=== PATIENT | female | born 1980 | race Caucasian/White ===

== ENCOUNTER 2020-10-10 14:31 | Outpatient (CLI) | payer BC, SELFPAY ==
--- NOTE | 2020-11-13 10:53 | WPDHOLTEREM ---
Holter/Event Monitor Holter/Event Monitor Date of procedure: 11/13/20 Holter/Event Procedure: Event Monitor Indications: Palpitations Conclusion: 1. 17 days event monitor between 10/10/20-11/08/20. There are 20 available transmissions for analysis. 2. Underlying rhythm is sinus rhythm. HR range 57-144 bpm; average HR 89 bpm. 3. There are occasional premature supraventricular complexes with total burden of 1%. No supraventricular tachycardia. 4. There are occasional premature ventricular complexes with total burden of 1%. No ventricular tachycardia. 5. No significant pauses greater than 2 seconds. 6. Patient reports 1 episode of symptom of symptom other than listed which demonstrate sinus tachycardia at 117 bpm.
== END 2020-10-10 14:32 | disposition home or self-care (01) ==
LOC: CHSCARD 14:33
PROVIDERS: PCP Internal Medicine; Visit Provider Internal Medicine
DX: R00.2 Palpitations (principal)
CPT/HCPCS: 93270; 93272

== ENCOUNTER 2021-03-18 10:46 | Outpatient (CLI) | payer BC, SELFPAY ==
--- NOTE | ~2021-03-18 | US_ITS ---
EXAMINATION: US pelvic complete w TV DATE: 03/18/2021 11:50 INDICATION: Excessive and frequent menstruation Comparison:Ultrasound dated 08/12/2012 TECHNIQUE: Multiple transabdominal and endovaginal sonographic images of the pelvis performed. FINDINGS: The uterus measures 11.8 x 7.5 x 7.1 cm. The endometrial complex measures 1.4 cm. The right ovary measures 4.2 x 3.7 x 2.9 cm and the left ovary measures 2.4 x 1.4 x 1.7 cm. There ar e small follicles in each ovary. Normal doppler signal in both ovaries. There is no free fluid in the pelvis. There are no abnormal masses seen on either side. IMPRESSION: 1. Mild endometrial thickening measuring 1.4 cm. 2: Enlarged uterus. Reviewed, dictated and finalized at location A. WRAPPER OPERATOR
== END 2021-03-18 10:47 | disposition home or self-care (01) ==
PROVIDERS: PCP Internal Medicine; Visit Provider Obstetrics & Gynecology
DX: N92.0 Excessive and frequent menstruation with regular cycle (principal); N85.2 Hypertrophy of uterus
CPT/HCPCS: 76830; 76856

== ENCOUNTER 2021-05-12 16:24 | Outpatient (CLI) | payer BC, SELFPAY ==
[2021-05-12 18:53] LABS: Influenza Control Valid (Valid)
[2021-05-12 19:18] LABS: SARS-CoV-2 Ag Positive (Negative)
== END 2021-05-12 16:25 | disposition home or self-care (01) ==
LOC: CHSLAB 16:47
PROVIDERS: PCP Internal Medicine; Visit Provider Internal Medicine
DX: U07.1 COVID-19 (principal); J06.9 Acute upper respiratory infection, unspecified
CPT/HCPCS: 87081; 87426; 87651; 87804; 87880; C9803

== ENCOUNTER 2021-05-24 10:40 | Outpatient (CLI) | payer BC, SELFPAY | END 2021-05-24 10:41 | disposition home or self-care (01) | LOC: CHSIMG 10:42 | PROVIDERS: PCP Internal Medicine; Visit Provider Nurse Practitioner Family | DX: Z53.9 Procedure and treatment not carried out, unspecified reason (principal) | CPT/HCPCS: 99199 ==

== ENCOUNTER 2021-10-13 10:07 | Outpatient (CLI) | payer BC, SELFPAY ==
[2021-10-13 10:29] LABS: Anion Gap 9 mmol/L (8-16); Blood Urea Nitrogen 15 mg/dL (7-18); Calcium 8.6 mg/dL (8.5-10.1); Carbon Dioxide 26 mmol/L (21-32); Chloride 106 mmol/L (98-108); Estimated Glomerular Filt Rate > 60; Glucose 146 mg/dL (70-99); Osmolality Calculated 295 mOsm/kg (285-295); Sodium 141 mmol/L (136-145)
== END 2021-10-13 10:08 | disposition home or self-care (01) ==
LOC: CHSLAB 10:09
PROVIDERS: PCP Internal Medicine; Visit Provider Obstetrics & Gynecology
DX: I10 Essential (primary) hypertension (principal)
CPT/HCPCS: 36415; 80048

== ENCOUNTER 2021-10-15 00:19 | Day surgery (SDC) | payer BC, SELFPAY ==
[2021-10-08 13:12] VITALS: BMI 41.7
--- NOTE | 2021-10-08 15:20 | PC.NURSE ---
PLEASE GIVE THIS FORM TO PATIENT WHEN PATIENT PRESENTS FOR OUTPATIENT TESTING Report to the Outpatient Waiting Room, entrance under the green pavilion located off [facility], at time _0600 on date _10/15/21 . OR Time: _0730 . IF YOUR SURGERY TIME IS CHANGED, WE WILL CALL YOU ON . 10/14/21 AFTERNOON - You and your visitor will be asked a series of questions to screen for COVID 19 for your protection. - Only one visitor is allowed at this time. - The patient visitor is requested to leave or wait in car when not with patient. - A mask is required within the hospital. Patients may have clear liquids (water, carbonated beverages, clear teas, apple juice) until 3 hours prior to surgery with a maximum of 20 ounces. - No food from midnight until time of surgery - Take the following medications with a SIP of water the morning of surgery: ___N/A Medications to discontinue per physician HOLD YOUR MULTIVITAMINS/SUPPLEMENTS BEGINNING 10/12/21 Date to take last dose Please no make-up, nail urdu, hairspray, perfume, deodorant, or body powder the day of surgery. No jewelry (including any body piercings) or valuables the day of surgery, leave them at home. Please take a shower or bath the night before, or the morning of, surgery with an antibacterial soap. Wear comfortable, loose fitting clothing. - Jewelry must be removed prior to entering the operating room. Rings and piercings that are not removed may be cut off. - The hospital will not accept responsibility for valuables. - Please leave all valuables, including medications, at home the day of surgery. If you are going home after surgery, a licensed hazardous materials driver must drive you home. - NO public transportation without another adult. - We recommend that an adult stay with you for 24 hours following discharge. - We also recommend that you do not drive, make important decision, drink alcoholic beverages, or take any drugs that were not prescribed by your health care provider for at least 24 hours after your discharge time. Follow any additional instructions given to you from your surgeon. If you or anyone in your household have experienced Covid symptoms in the past week, please notify your surgeon or the nurse liaison at the phone number below for possible testing. Telephone instructions given to JETT and asked if any additional questions and then verbalized understanding. Patient advised to call surgeon office or pre surgery nurse liaison [phone] if any additional questions.
--- NOTE | 2021-10-14 13:49 | P.PNAN_ITS ---
Anes - Initial Pre Proc Eval Procedure: Operation Date: 10/15/21 07:30 Proposed Procedures p Hysteroscopy with Endometrial Ablation, Possible Myosure - Jose Tomlinson MD Date/Time: 10/14/21 13:49 Surgeon: Jose Tomlinson MD Pre Op Diagnosis: menorrhagia, endometrial polyp Patient Data Age: 41 Gender: F Height: 1.73 m Weight: 124.5 kg Allergies Allergy/AdvReac Type Severity Reaction Status Date / Time No Known Allergies Allergy Verified 10/15/21 07:05 Home Medications Medication Instructions Recorded Confirmed Type tranexamic acid 650 mg tablet 650 mg PO TID PRN heavy periods 08/04/21 10/08/21 Rx (Lysteda) #30 tabs losartan 50 mg-hydrochlorothiazide 1 tablet PO DAILY 09/24/21 10/15/21 History 12.5 mg tablet cetirizine 10 mg tablet (Zyrtec) 10 mg PO DAILY 10/08/21 10/15/21 History cholecalciferol (vitamin D3) 50 50 mcg PO DAILY 10/08/21 10/15/21 History mcg (2,000 unit) tablet multivit with minerals-iron 18 1 tablet PO POST-TRANSFUSION 10/08/21 10/15/21 History mg-folic ac 400 mcg-vit K 25 mcg tablet (Adults Multivitamin) Patient hx anesthesia problems: none Family hx anesthesia problems: none Results Review: All pre-operative results and documents have been reviewed as part of the pre- operative evaluation. PMFSH Past Medical History Medical History Hyperlipidemia Hypertension Morbid obesity with BMI of 40.0-44.9, adult Surgical History Surgical History Previous section x 2 Family History Family History Grandparent Diabetes mellitus Ovarian cancer Cervical cancer Social History Social History Smoking status: Never smoker Second hand tobacco smoke exposure: No Alcohol intake: current Substance use: never Substance use type: does not use Living arrangements: with family Spiritual care concerns: No Anes - Eval Final PreProcedure Day of Procedure 10/14/21 13:49 Patient weight: morbidly obese Heart: regular rate and rhythm Lungs: clear to auscultation and normal air movement Airway: Mallampati scale class II Neurological: alert and oriented Last oral intake: >/= 8 hours ASA classification: III Emergent: no Anesthetic plan: proceed Anesthesia type and monitoring: general LMA Results Review: All pre-operative results and documents have been reviewed as part of the pre- operative evaluation. Informed Consent: The patient's anesthetic plan and its attendant risks and benefits were discussed with the patient/family/POA. Questions were solicited and answers provided to the satisfaction of the patient/family/POA.
--- NOTE | 2021-10-14 16:21 | PM.IMHP ---
H&P: HPI History of Present Illness Date/Time: 10/14/21 16:21 Chief Complaint: heavy periods Narrative: ?she complains of subjective menorrhagia increasing over 1 year.? She reports she is anemic and is on iron pills 3 times a day. She had an endometrial biopsy which showed possible polyp. She has been offered hysteroscopy and she also desires endometrial ablation. has a vasectomy. Review of Systems Review of Systems: All systems reviewed & are unremarkable except as noted in HPI and below Constitutional: Constitutional: Reports no additional constitutional complaints ENT: Reports system reviewed and no additional complaints, except as documented Cardiovascular: Cardiovascular: Denies chest pain and Denies dyspnea Respiratory: Respiratory: Denies dyspnea Gastrointestinal: Gastrointestinal: Reports no additional gastrointestinal complaints Genitourinary: Genitourinary: Reports amenorrhea Musculoskeletal: Musculoskeletal: Reports no additional musculoskeletal complaints Neurologic: Denies headache(s) Psychiatric: Psychiatric: Reports no additional psychiatric complaints PMFSH Past Medical History Medical History Hyperlipidemia Hypertension Morbid obesity with BMI of 40.0-44.9, adult Surgical History Surgical History Previous section x 2 Family History Family History Grandparent Diabetes mellitus Ovarian cancer Cervical cancer Social History Social History Smoking status: Never smoker Second hand tobacco smoke exposure: No Alcohol intake: current Substance use: never Substance use type: does not use Living arrangements: with family Spiritual care concerns: No Meds Home Medications and Allergies Home Medications Medication Instructions Recorded Confirmed Type tranexamic acid 650 mg tablet 650 mg PO TID PRN heavy periods 08/04/21 10/08/21 Rx (Lysteda) #30 tabs losartan 50 mg-hydrochlorothiazide 1 tablet PO DAILY 09/24/21 10/15/21 History 12.5 mg tablet cetirizine 10 mg tablet (Zyrtec) 10 mg PO DAILY 10/08/21 10/15/21 History cholecalciferol (vitamin D3) 50 50 mcg PO DAILY 10/08/21 10/15/21 History mcg (2,000 unit) tablet multivit with minerals-iron 18 1 tablet PO POST-TRANSFUSION 10/08/21 10/15/21 History mg-folic ac 400 mcg-vit K 25 mcg tablet (Adults Multivitamin) Allergies Allergy/AdvReac Type Severity Reaction Status Date / Time No Known Allergies Allergy Verified 10/15/21 07:05 Exam Const: General: no acute distress Eyes: General: appearance normal, both eyes and all related structures Neck: Neck: normal visual inspection Resp: Effort & Inspection: normal respiratory effort Auscultation: clear to auscultation bilaterally Cardio: Rate: regular rate Rhythm: regular rhythm GI: Inspection: normal to inspection GI Palp: No abdominal tenderness : External Female Exam: normal external appearance Speculum Exam - Vagina: normal appearance of the vagina Speculum Exam - Cervix: normal appearance of the cervix Bimanual exam- vagina & uterus: normal bimanual exam Bimanual Exam- Adnexa, other: normal adnexae Skin: General skin exam: no rashes or lesions noted Neuro: Cognition (Neuro): normal cognition Extrem: General: normal to inspection Psych: Mental Status: mental status grossly normal Assessment and Plan Assessment and plan (1) Menorrhagia: Code(s): N92.0 - Excessive and frequent menstruation with regular cycle Status: Acute Assessment and Plan: Endometrial ablation. (2) Endometrial polyp: Code(s): N84.0 - Polyp of corpus uteri Status: Acute Assessment and Plan: hysteroscopy and possible dilation and currettage and possible myosure removal of
[2021-10-15 06:15] VITALS: BP 148/98; PULSE 100; RESP 20; TEMP 36.4; O2SAT 100
[2021-10-15] MEDS: ACETAMINOPHEN 500 MG TABLET 1000 MG PO (06:55)
[2021-10-15] MEDS: LACTATED RINGERS 1,000 ML 30 ML IV CONT ×2 (07:00→08:50)
--- NOTE | 2021-10-15 07:15 | WPDHPUPDATE1 ---
History and Physical Update Update Date/Time: 10/15/21 07:15 History and Physical has been reviewed, including an updated exam of the patient. There are NO changes in the patient's condition. Risks, benefits, and alternatives have been discussed and questions answered. Patient agrees to proceed with procedure.
[2021-10-15] MEDS: ceFAZolin 2 GM/D5W 50 ML 2 GM/50 ML BAG IVPB (07:29)
[2021-10-15] MEDS: LIDOCAINE HCL 1% LOCAL INJ 20 ML VIAL 10 ML INFILTRATE (07:42)
--- NOTE | 2021-10-15 08:05 | W.PM.PROC2 ---
Procedure Note - Detailed Date of Procedure 10/15/21 Pre-op Diagnosis menorrhagia, endometrial polyp Post-op Diagnosis Same Procedure Performed Diagnostic hysteroscopy with Delores endometrial ablation. Surgeon Jose Tomlinson MD Anesthesia MAC and Local Indications Menorrhagia Findings uterus sound to 11cm cervical length 5.5, normal uterine cavity, good eschar of cavity after ablation, 550 NS insufflated, 400 NS out Description of Procedure After informed consent was obtained patient was taken to the operating room and adequate IV sedation was administered. Attention was turned to the vagina. Speculum was inserted. Single-tooth tenaculum placed on the anterior lip of the cervix. The uterus was sounded to 11 cm. The cervix was dilated to an 8 Covarrubias dilator. The cervical length was 5.5. The hysteroscope was inserted into the cavity. The findings were a normal uterine cavity. The hysteroscope was removed. The Delores ablation instrument was inserted into the cavity. Cavity assessment was performed and confirmed intact. The ablation was enabled. After 120 seconds the Delores stopped. The ablation instrument was removed. The hysteroscope was inserted and there was noted to be good eschar with the cavity. The hysteroscope was removed the single-tooth tenaculum was removed hemostasis was noted at the tenaculum site. Sponge count correct. The patient taken to recovery in stable condition. Estimated Blood Loss 10 Drains No Packing No Pathology None sent Complications No immediate complications Condition Stable Disposition Same day [facility] Billing Surgery - Charge Forward: Surgery Billing
[2021-10-15] MEDS: KETOROLAC 30 MG/ML VIAL (*BKC) IV PUSH (08:13)
[2021-10-15 08:15] VITALS: BP 164/92; PULSE 108; RESP 18; O2SAT 98
[2021-10-15] MEDS: fentaNYL CITRATE INJ (*CRX) 100 MCG/2 ML VIAL 25 MCG IV PUSH ×6 (08:32→09:34)
[2021-10-15 08:45] VITALS: BP 161/98; PULSE 83; RESP 16
[2021-10-15 09:15] VITALS: BP 159/89; PULSE 81; RESP 16
[2021-10-15] MEDS: oxyCODONE HCL (*CRX) 5 MG TAB IR PO (09:34)
[2021-10-15 09:45] VITALS: BP 165/93; PULSE 91; RESP 16
== END 2021-10-15 10:02 | disposition home or self-care (01) ==
PROVIDERS: PCP Internal Medicine; Visit Provider Obstetrics & Gynecology
PROC: 0U5B8ZZ Destruction of Endometrium, Via Natural or Artificial Opening Endoscopic (ICD-10-PCS; CPT 58563; principal; 2021-10-15 07:30)
DX: N92.0 Excessive and frequent menstruation with regular cycle (principal); N84.0 Polyp of corpus uteri; D64.9 Anemia, unspecified; I10 Essential (primary) hypertension; E78.5 Hyperlipidemia, unspecified; E66.01 Morbid (severe) obesity due to excess calories; Z68.39 Body mass index [BMI] 39.0-39.9, adult
CPT/HCPCS: 58563; A9270; J0690; J1885; J2250; J2704; J3010; J7030; J7120

== ENCOUNTER 2022-06-04 10:36 | Outpatient (CLI) | payer BC, SELFPAY ==
--- NOTE | ~2022-06-04 | MM_ITS ---
EXAMINATION: MM screening nancy BI w garret HISTORY: Screening mammogram TECHNIQUE: Craniocaudal and mediolateral oblique 3-D tomosynthesis images were obtained and synthetic 2-D images were generated. CAD analysis was submitted and interpreted. COMPARISON: 01/22/2011 BREAST PARENCHYMAL COMPOSITION: The breasts are heterogeneously dense, which may obscure small masses . FINDINGS: No suspicious mass, calcification, or architectural distortion are identified in either angelica ast to suggest malignancy. There has been no suspicious interval change. IMPRESSION: 1. No mammographic evidence of malignancy. 2. Recommend routine screening mammography in one year. BI-RADS Category 1: Negative Reviewed, dictated and finalized at location A. ICAL MARKETING MANAGER
== END 2022-06-04 10:37 | disposition home or self-care (01) ==
PROVIDERS: PCP Internal Medicine; Visit Provider Obstetrics & Gynecology
DX: Z12.31 Encounter for screening mammogram for malignant neoplasm of breast (principal)
CPT/HCPCS: 77063; 77067

== ENCOUNTER 2022-08-27 12:34 | Outpatient (CLI) | payer BC, SELFPAY ==
--- NOTE | ~2022-08-27 | XR_ITS ---
Clinical Indication: Sore throat, upper respiratory infection PA and lateral views of the chest: Comparison: None Findings: The lungs are clear, without evidence of focal consolidation or pleural effusion. Cardiome diastinal silhouette is within normal limits. Bones and soft tissues are unremarkable. Impression: Normal chest. Reviewed, dictated and finalized at location . Impression: Normal chest.
[2022-08-27 12:51] LABS: Basophils Absolute Auto 0.02 K/mm3 (0.00-0.10); Basophils Percent Auto 0.2 % (0.0-1.0); Eosinophils Absolute Auto 0.06 K/mm3 (0.02-0.50); Eosinophils Percent Auto 0.5 % (1.0-6.0); Hematocrit 36.4 % (35.0-49.0); Hemoglobin 12.4 g/dL (12.0-15.0); Immature Granulocyte Absolute 0.06 K/mm3 (0.00-0.00); Immature Granulocyte Percent A 0.5 % (0.0-0.0); Lymphocytes Absolute Auto 1.08 K/mm3 (1.10-4.50); Lymphocytes Percent Auto 8.7 % (18.0-42.0); Mean Corpuscular HGB Conc 34.1 g/dL (32.0-36.0); Mean Corpuscular Hemoglobin 30.1 pg (27.0-31.0); Mean Corpuscular Volume 88.3 fL (78.0-102.0); Mean Platelet Volume 9.1 fl (9.2-11.8); Monocytes Absolute Auto 0.47 K/mm3 (0.10-0.90); Monocytes Percent Auto 3.8 % (2.0-11.0); Neutrophils Absolute Auto 10.7 K/mm3 (1.7-7.2); Neutrophils Percent Auto 86.3 % (50.0-70.0); Platelet Count Result 272 K/mm3 (150-420); Red Blood Count 4.12 M/mm3 (4.20-5.40); Red Cell Distribution Width 12.1 % (11.6-14.4); White Blood Count 12.4 K/mm3 (4.8-10.8)
[2022-08-27 13:12] LABS: Influenza Control Valid (Valid)
[2022-08-27 13:20] LABS: Strep Group A RT-PCR DETECTED (Negative)
[2022-08-27 13:21] LABS: Anion Gap 11 mmol/L (8-16); Blood Urea Nitrogen 10 mg/dL (7-18); Calcium 9.1 mg/dL (8.5-10.1); Carbon Dioxide 27 mmol/L (21-32); Chloride 103 mmol/L (98-108); Estimated Glomerular Filt Rate > 60; Glucose 153 mg/dL (70-99); Osmolality Calculated 294 mOsm/kg (285-295); Potassium 4.2 mmol/L (3.5-5.1); Sodium 141 mmol/L (136-145)
== END 2022-08-27 12:35 | disposition home or self-care (01) ==
LOC: CHSLAB 12:36
PROVIDERS: PCP Internal Medicine; Visit Provider Internal Medicine
DX: J02.0 Streptococcal pharyngitis (principal)
CPT/HCPCS: 71046; 80048; 85025; 87651; 87804

== ENCOUNTER 2023-05-06 08:33 | Outpatient (CLI) | payer BC, SELFPAY ==
--- NOTE | ~2023-05-06 | MMUS_ITS ---
EXAMINATION: MM diagnostic nancy BI w garret, US breast BI complete HISTORY: Bilateral nipple discharge for 8 months TECHNIQUE: ML, MLO and CC 3-D tomosynthesis images of both breasts were performed and synthetic 2-D i mages were generated. CAD analysis was submitted and interpreted. High resolution complete bilateral breast ultrasound examination coronal 4 quadrants and subareolar areas was performed. COMPARISON: None FINDINGS: MAMMOGRAPHIC FINDINGS: Scattered benign calcifications. No suspicious mass or architectural distortion, malignant calcification, skin thickening or retractio n or significant new or developing density is detected. ULTRASOUND: There is no evidence of focal abnormal solid or cystic lesion in either breast. IMPRESSION: 1. No mammographic or sonographic evidence of malignancy 2. Routine annual mammographic screening is recommended BI-RADS Category 2: Benign finding(s). Reviewed, dictated and finalized at location A. ING MACHINE OPERATOR/TENDER IMPRESSION: 1. No mammographic or sonographic evidence of malignancy 2. Routine annual mammographic screening is recommended BI-RADS Category 2: Benign finding(s).
== END 2023-05-06 08:34 | disposition home or self-care (01) ==
LOC: CHSIMG 08:34
PROVIDERS: PCP Internal Medicine; Visit Provider Obstetrics & Gynecology
DX: N64.52 Nipple discharge (principal)
CPT/HCPCS: 76641; 77062; 77066; G0279

== ENCOUNTER 2024-05-08 09:45 | Outpatient (CLI) | payer BC, SELFPAY ==
--- NOTE | ~2024-05-08 | MM_ITS ---
EXAMINATION: MM screening nancy BI w garret HISTORY: Screening mammogram TECHNIQUE: Craniocaudal and mediolateral oblique 3-D tomosynthesis images were obtained and synthetic 2-D images were generated. CAD analysis was submitted and interpreted. COMPARISON: 05/06/2023, 06/04/2022 BREAST PARENCHYMAL COMPOSITION:Dense: The breasts are heterogeneously dense, which may obscure small masses. FINDINGS: No suspicious mass, calcification, or architectural distortion are identified in either angelica ast to suggest malignancy. There has been no suspicious interval change. IMPRESSION: No mammographic evidence of malignancy. Recommend routine screening mammography in one year. BI-RADS Category 1: Negative Reviewed, dictated and finalized at location . OR REGULATORY AFFAIRS SPECIALIST
== END 2024-05-08 09:46 | disposition home or self-care (01) ==
LOC: ANHIMG 09:47
PROVIDERS: PCP Internal Medicine; Visit Provider Obstetrics & Gynecology
DX: Z12.31 Encounter for screening mammogram for malignant neoplasm of breast (principal)
CPT/HCPCS: 77063; 77067

== ENCOUNTER 2024-06-07 08:58 | Outpatient (CLI) | payer BC, SELFPAY ==
--- NOTE | ~2024-06-07 | US_ITS ---
EXAMINATION: US pelvic complete w TV DATE: 06/07/2024 09:31 INDICATION: Hypertrophy of uterus. TECHNIQUE: Multiple transabdominal and transvaginal sonographic images of the pelvis were obtained. COMPARISON: Ultrasound 03/18/2021 FINDINGS: TRANSABDOMINAL ULTRASOUND: The uterus measures 10.6 x 6.0 x 6.5 cm. There is no free fluid in the pelvis. TRANSVAGINAL ULTRASOUND: The endometrial complex measures 7 mm in thickness. There are nabothian cysts in the cervix. The righ t ovary measures 3.4 x 2.2 x 2.6 cm. The left ovary is not visualized. IMPRESSION: 1. No significant abnormality. Reviewed, dictated and finalized at location A. EATION PROFESSOR
== END 2024-06-07 08:59 | disposition home or self-care (01) ==
PROVIDERS: PCP Internal Medicine; Visit Provider Obstetrics & Gynecology
DX: N85.2 Hypertrophy of uterus (principal)
CPT/HCPCS: 76830; 76856

== ENCOUNTER 2024-10-11 11:32 | Outpatient (CLI) | payer BC, SELFPAY ==
--- NOTE | ~2024-10-11 | XR_ITS ---
XR foot LT min 3V Ordering provider: Ccuo Rocha MD History: . Fall X yesterday, - bruising/swelling/base of 5th metatarsal . Comparison: None. FINDINGS: BONES: No acute fracture or dislocation. JOINT SPACES: Narrowing of the distal interphalangeal joints. No tarsal coalition. SOFT TISSUES: Normal. Calcaneal spur. Ossification of the tendo Achilles. IMPRESSION: No acute osseous abnormality left foot. Polyarticular osteoarthritic changes Reviewed, dictated and finalized at location A.
--- NOTE | ~2024-10-11 | XR_ITS ---
XR ankle LT min 3V 10/11/2024 11:51 Indication: Status post fall. Left ankle pain. Procedure: 4 views left ankle Comparison: 03/02/2015 Findings: No fracture, subluxation or dislocation. No significant soft tissue abnormality. No foreign bodies. Impression: 1: No significant bone or joint abnormality. Reviewed, dictated and finalized at location A. Impression: 1: No significant bone or joint abnormality.
--- OUTSIDE RECORDS SUMMARY | 2024-10-11 11:36 | XMS_ITS | Encounter Summary ---
Author Organization [facility] Healthcare Address [address] [place] [id number] Care Team Providers Care Family Dentist Name Role Phone No, Physician Primary Care Provider [phone] Cuco Rocha MD Primary Care Provider Encounter Details Date Type Department Care Team (Late st Contact Info) Description 08/27/2024 Results Follow-Up [facility] Medical [facility] Convenient Care at [address] [address] Swathi Sheehan NP [address] [facility] [address] [place] [address] Throat culture Throat Social History Tobacco Use Types Packs/Day Years Used Date Smoking Tobacco: Never Assessed Comments Unknown Sex and Gender Information Value Date Recorded Sex Assigned at Not on file Legal Sex Female 10:51 PM CDT Gender Identity Not on file Sexual Orientation Not on file documented as of this encounter Miscellaneous Notes * Result Encounter Note - Swathi Sheehan NP - 08/27/2024 2:06 PM CDT Please alert patient of negative strep culture. Patient should continue tylenol/ibuprofen as directed for discomfort and f/u with PCP if symptoms persist. documented in this encounter Plan of Treatment Not on file documented as of this encounter Visit Diagnoses Not on filedocumented in this encounter Care Teams Family Dentist Relationship Specialty Start Date End Date No, Physician PCP - General 03/14/23 09/14/24 Cuco Rocha MD [address] [place] [address] PCP - General Internal Medicine 09/15/24 documented as of this encounter
--- OUTSIDE RECORDS SUMMARY | 2024-10-11 11:36 | XMS_ITS | Encounter Summary ---
Author Organization [facility] Healthcare Address [address] [place] [address] Care Team Providers Care Cover Marker Name Role Phone Cuco Rocha MD Primary Care Provider Encounter Details Date Type Department Care Team (Late st Contact Info) Description 09/16/2024 Results Follow-Up [facility] Medical [facility] Convenient Care at [address] [address] Swathi Sheehan NP [address] [place] [address] [address] [place] [address] Throat culture Throat Social History Tobacco Use Types Packs/Day Years Used Date Smoking Tobacco: Never Assessed Comments Unknown Sex and Gender Information Value Date Recorded Sex Assigned at Not on file Legal Sex Female 10:51 PM CDT Gender Identity Not on file Sexual Orientation Not on file documented as of this encounter Plan of Treatment Not on file documented as of this encounter Visit Diagnoses Not on filedocumented in this encounter Care Teams Cover Marker Relationship Specialty Start Date End Date Cuco Rocha MD [address] [place] [address] PCP - General Internal Medicine 09/15/24 documented as of this encounter
--- OUTSIDE RECORDS SUMMARY | 2024-10-11 11:36 | XMS_ITS | Clinical Summary ---
Author Organization [facility] Address [facility] [facility] [place] [address] Care Team Providers Care Children'S Service Worker Name Role Phone Unknown, Provider Primary Care Provider Unavaila ble Source Comments [facility],non-owned Affiliates and Associated Physician Practices is amultiple site organization consisting of ambulatory clinics and hospital sitesin [place], [place], [place] and [place]. This disclosure is being madepursuant to the Care Everywhere program and may not contain all information available regarding this patient. Last updated 18.[facility] Allergies No known active allergies Medications * Be aware that medications may not be up to date on this document. Alwaysverify current medications with the patient. AMLODIPINE BENZOATE PO Active Montelukast Sodium (SINGULAIR PO) Activ e Active Problems No known active problems Social History Tobacco Use Types Packs/Day Years Used Date Smoking Tobacco: Never Smokeless Tobacco: Never Comments Unknown Sex and Gender Information Value Date Recorded Sex Assigned at Not on file Legal Sex Female 2:26 PM CDT Gender Identity Not on file Sexual Orientation Not on file Last Filed Vital Signs Vital Sign Reading Time Taken Comments Blood Pressure 118/78 10/28/2020 6:41 PM CDT Pulse 94 10/28/2020 6:41 PM CDT Temperature 37 C (98.6 F) 10/28/2020 6:41 PM CDT Respiratory Rate 17 10/28/2020 6:41 PM CDT Oxygen Saturation 97% 10/28/2020 6:41 PM CDT Inhaled Oxygen Concentration - - Weight 117.9 kg (260 lb) 10/28/2020 6:41 PM CDT Height 172.7 cm (5' 8) 10/28/2020 6:41 PM CDT Body Mass Index 39.53 10/28/2020 6:41 PM CDT Plan of Treatment Health Maintenance Due Date Last Done Comments LIPID TESTING 1981 MAMMOGRAM 1981 HIV SCREENING 1996 HEPATITIS C SCREENING 09/11/1999 DTAP/TDAP/TD VACCINES (1 - Tdap) 2000 HEPATITIS B VACCINE (1 of 3 - 19+ 3-dose series) 2000 COVID-19 VACCINE (1 - 2023-2 5 season) 2024 DEPRESSION SCREENING 05/10/2024 INFLUENZA VACCINE (Season Ended) 2025 ZOSTER VACCINE (1 of 2) 09/16/2031 HIB VACCINE Aged Out No longer eligi ble based on patient's age to complete this topic HPV VACCINE Aged Out No longer eligi ble based on patient's age to complete this topic MENINGOCOCCAL (Group B) VACC INE SHARED DECISION-MAKING Aged Out No longer eligibl e based on patient's age to complete this topic MENINGOCOCCAL GROUPS A/C/Y/W VACCINE Aged Out No longer eligible b ased on patient's age to complete this topic PNEUMOCOCCAL VACCINE Aged Out No long er eligible based on patient's age to complete this topic Insurance ANTHEM Care Teams Children'S Service Worker Relationship Specialty Start Date End Date Unknown, Provider PCP - General 10/28/20
--- OUTSIDE RECORDS SUMMARY | 2024-10-11 11:37 | XMS_ITS | Clinical Summary ---
Author Organization [facility] HealthCare Care Team Providers Care Visual Journalist Name Role Phone Cuco Rocha MD Primary Care Provider Allergies No known active allergies Medications losartan-hydroCHLOR Othiazide (HYZAAR) 50-12.5 mg per tablet losartan-hydroc hlorothiazide Take (oral) 1 time per day No date recorded tablet 1 time per day oral No set duration recorded No set duration amount recorded active 50-12.5 mg Active benzonatate (TESSALON) 100 mg capsuleIndications: Cough Take 1 capsule (100 mg total) by mouth 3 (three) times a day as needed for cough 42 capsule 03/14/20 23 Active Additional Information Patient not taking.Reported on 09/23/2024 azelastine (ASTELIN) 137 mcg (0.1 %) nasal sprayIndications:Ac ragini nasopharyngitis Administer 1 spray into each nostril 2 (two) times a day for 14 days Use in each nostril as directed 30 mL 03/02/20 24 Active montelukast (SINGULAIR) 10 mg tablet Take 1 tablet (10 mg total) by mouth nightly 08/09/19 25 Active MULTIVITAMIN ORAL Take by mouth Active Lactobacillus acidophilus (PROBIOTIC ORAL) Take by mouth Active cetirizine 10 mg tablet,disintegrati ng Take by mouth Active cyclobenzaprine (FLEXERIL) 10 mg tabletIndications:A cute midline low back pain without sciatica Take 1 tablet (10 mg total) by mouth 3 (three) times a day as needed for muscle spasms 30 tablet 09/24/19 25 025 Active Active Problems No known active problems Encounters Date Type Department Care Team Description 09/24/2024 Results Follow-Up [facility] at [address] [place] [address] Jacque Cutler, ASSEMBLER BICYCLE Urine culture Urine, clean voided 09/23/2024 9:30 AM CDT Office Visit [facility] at [address] [place] [address] Jacque Cutler, ASSEMBLER BICYCLE UTI symptoms (Primary Dx); Acute midline low back pain without sciatica; Urinary frequency 09/23/2024 9:17 AM CDT - 09/23/2024 11:59 PM CDT Hospital Encounter [address] [address] UTI symptoms Discharge Disposition: Discharge to home or self care 09/16/2024 Results Follow-Up [facility] at [address] [address] Swathi Sheehan, ASSEMBLER BICYCLE Throat culture Throat 2024 12:56 PM CDT - 2024 11:59 PM CDT Hospital Encounter [address] [address] Pharyngitis, unspecified etiology Discharge Disposition: Discharge to home or self care 2024 12:30 PM CDT Office Visit [facility] at [address] [address] Swathi Sheehan, ASSEMBLER BICYCLE Pharyngitis, unspecified etiology (Primary Dx) 08/27/2024 Results Follow-Up [facility] at [address] [address] Swathi Sheehan, ASSEMBLER BICYCLE Throat culture Throat 08/26/2024 1:48 PM CDT - 08/26/2024 11:59 PM CDT Hospital Encounter [address] [address] Nasopharyngitis acute Discharge Disposition: Discharge to home or self care 08/26/2024 8:00 AM CDT Office Visit [facility] at [address] [address] Swathi Sheehan NP Nasopharyngitis acute (Primary Dx); Acute non-recurrent pansinusitis; Bacterial conjunctivitis of left eye from Last 3 Months Social History Tobacco Use Types Packs/Day Years Used Date Smoking Tobacco: Never Smokeless Tobacco: Never Tobacco Cessation:Counseling Given: Not Answered Comments No Sex and Gender Information Value Date Recorded Sex Assigned at Not on file Legal Sex Female 10:51 PM CDT Gender Identity Not on file Sexual Orientation Not on file Obstetrics History Last Filed Vital Signs Vital Sign Reading Time Taken Comments Blood Pressure 124/86 09/23/2024 9:17 AM CDT Pulse 101 09/23/2024 9:17 AM CDT Temperature 36.8 C (98.2 F) 09/23/2024 9:17 AM CDT Respiratory Rate 16 09/23/2024 9:17 AM CDT Oxygen Saturation 97% 09/23/2024 9:17 AM CDT Inhaled Oxygen Concentration - - Weight 117.2 kg (258 lb 6.4 oz) 09/23/2024 9:17 AM CDT Height 167.6 cm (5' 6) 09/23/2024 9:17 AM CDT Body Mass Index 41.71 09/23/2024 9:17 AM CDT Plan of Treatment Health Maintenance Due Date Last Done Comments Breast Cancer Screening-Mammogram 1981 Cervical Cancer Screening 1981 Depression Screening 1981 Hepatitis C Screening 1981 DTaP/Tdap/Td Vaccine (1 - Tdap) 1992 Varicella Vaccines (1 of 2 - 13+ 2-dose series) 1994 Hepatitis B Screening 09/16/1999 Regular Well Visit/Exam 18-64 09/16/1999 Influenza Vaccine (Season Ended) 2025 HPV Vaccines Aged Out No longer eligi ble based on patient's age to complete this topic Pneumococcal vaccine <65 Aged Out No longer eligible based on patient's age to complete this topic Procedures Procedure Name Priority Date/Time Associated Diagnosis Comments POCT HCG, URINE Routine 09/23/2024 9:35 AM CDT UTI symptoms POCT URINALYSIS DIPSTICK Routine 09/23/2024 9:30 AM CDT UTI symptoms URINE CULTURE Routine 09/23/2024 9:17 AM CDT UTI symptoms THROAT CULTURE Routine 2024 12:56 PM CDT Pharyngitis, unspecified etiology POCT MONONUCLEOSIS SCREEN Routine 2024 12:54 PM CDT Pharyngitis, unspecified etiology POCT RAPID STREP Routine 2024 12:5 4 PM CDT Pharyngitis, unspecified etiology THROAT CULTURE Routine 08/26/2024 1:48 PM CDT Nasopharyngitis acute POCT RAPID STREP Routine 08/26/2024 8:24 AM CDT Nasopharyngitis acute from Last 3 Months Results * POCT hCG, urine (09/23/2024 9:35 AM CDT) HCG, ur, POC Negative Negative Lot Number [id number] QC Backgroud Clear Acceptable QC Control Line Acceptable Urine 09/23/2024 9:35 AM CDT Jacque Cutler NP POINT OF CARE TEST ORDERAB LES Final Result * (ABNORMAL) POCT urinalysis dipstick (09/23/2024 9:30 AM CDT) Color, Urine, POC Ellen Clarity, ur, POC Cloudy(A) Clear Glucose, ur, POC Negative Negative Bilirubin, ur, POC Negative Negative Ketones, ur, POC Negative Negative Specific [place], POC Comment:>=1.030 Blood, ur, POC Negative Negative pH, ur, POC 5.5 5.0 - 8.0 Protein, ur, POC Negative Negative Urobilinogen, urine, POC 0.2 0.2 - 1.0 mg/dL Nitrite, ur, POC Negative Negative Leukocytes, ur, POC Negative Negative Lot Number [id number] Urine 09/23/2024 9:30 AM CDT Jacque Cutler NP POINT OF CARE TEST ORDERAB LES Final Result * Urine culture Urine, clean voided (09/23/2024 9:17 AM CDT) Report Final Report: Less than 100,000 colonies/mL (clinically insignificant growth based on current clinical standards) Comment:Testing performed by : [facility], [address] [place] [address]., [id number] Organism (CLINICALLY INSIGNIFICANT GROWTH [facility] Urine, clean voided 09/23/2024 9:17 AM CDT 09/23/2024 3:54 PM CDT Narrative [facility] 09/25/2024 7:44 AM CDT Testing performed by [facility] Microbiology Laboratory ([phone]) Jacque Cutler NP LAB MICROBIOLOGY - GENERAL ORDERABLES Final Result Performing Organization Address City/[facility] [address]/ZIP Co de Phone Number [facility] [address] [place] [address] * Throat culture Throat (2024 12:56 PM CDT) Report Final Report: No growth of pathogens. Comment:Testing performed by : [facility], [address] [place] [address], [place]., [address] Throat 2024 12:5 6 PM CDT 09/16/2024 12:31 AM CDT Narrative [facility] 09/16/2024 7:33 PM CDT Testing performed by [facility] Microbiology Laboratory ([phone]). Swathi Sheehan NP LAB MICROBIOLOGY - GENERAL ORD ERABLES Final Result [facility] [address] [address] [place] [address] * POCT mononucleosis screen (2024 12:54 PM CDT) Heterophile, POC neg Blood spot 2024 12:5 4 PM CDT Result Dallin Sheehan NP POINT OF CARE TEST ORDERABLES Final Result * POCT rapid strep A (2024 12:54 PM CDT) Pathologist [facility] Rapid Strep A, POC Negative Negative Swab 2024 12:5 4 PM CDT Result Dallin Sheehan NP POINT OF CARE TEST ORDERABLES Final Result * Throat culture Throat (08/26/2024 1:48 PM CDT) Pathologist [facility] Report Final Report: No growth of pathogens. Comment:Testing performed by : [facility], [address] [place]., [address] Throat 08/26/2024 1:48 PM CDT 08/26/2024 6:38 PM CDT Narrative [facility] 08/27/2024 2:03 PM CDT Testing performed by [facility] Microbiology Laboratory ([phone]). Result Dallin Sheehan NP LAB MICROBIOLOGY - GENERAL ORD ERABLES Final Result [facility] [address] [address] [facility] [place] [address] * POCT rapid strep A (08/26/2024 8:24 AM CDT) Pathologist [facility] Rapid Strep A, POC Negative Negative Swab 08/26/2024 8:24 AM CDT Result Dallin Sheehan NP POINT OF CARE TEST ORDERABLES Final Result from Last 3 Months Insurance [employer] [place] PPO [place] Care Teams Visual Journalist Relationship Specialty Start Date End Date Cuco Rocha MD [address] [place], [place] [phone] PCP - General Internal Medicine 09/15/24
--- OUTSIDE RECORDS SUMMARY | 2024-10-11 11:37 | XMS_ITS | Referral Summary ---
Author Organization [facility] HealthCare Care Team Providers Care Spar Finisher Name Role Phone Cuco Rocha MD Primary Care Provider Encounters Date Type Department Care Team Description 09/24/2024 Results Follow-Up [facility] at [address] [place] [address] Jacque Cutler, EXTRACTOR TENDER RAW STOCK Urine culture Urine, clean voided 09/23/2024 9:17 AM CDT - 09/23/2024 11:59 PM CDT Hospital Encounter [address] [address] UTI symptoms Discharge Disposition: Discharge to home or self care 09/23/2024 9:30 AM CDT Office Visit [facility] at [place] [address] [place] [address] Jacque Cutler, MARY UTI symptoms (Primary Dx); Acute midline low back pain without sciatica; Urinary frequency 09/16/2024 Results Follow-Up [facility] at [address] [address] Swathi Sheehan, EXTRACTOR TENDER RAW STOCK Throat culture Throat 2024 12:56 PM CDT - 2024 11:59 PM CDT Hospital Encounter [address] [address] Pharyngitis, unspecified etiology Discharge Disposition: Discharge to home or self care 2024 12:30 PM CDT Office Visit [facility] at [address] [address] Swathi Sheehan, MARY Pharyngitis, unspecified etiology (Primary Dx) 08/27/2024 Results Follow-Up [facility] at [address] [address] Swathi Sheehan NP Throat culture Throat 08/26/2024 1:48 PM CDT - 08/26/2024 11:59 PM CDT Hospital Encounter [address] [address] Nasopharyngitis acute Discharge Disposition: Discharge to home or self care 08/26/2024 8:00 AM CDT Office Visit [facility] at [address] [phone] Swathi Sheehan, MARY Nasopharyngitis acute (Primary Dx); Acute non-recurrent pansinusitis; Bacterial conjunctivitis of left eye from Last 3 Months Allergies No known active allergies Medications losartan-hydroCHLOR [...] Active Active Problems No known active problems Social [...] 09/23/2024 9:17 AM CDT Plan of Treatment Not on file Procedures Procedure Name Priority Date/Time Associated Diagnosis [...] Negative Ketones, ur, POC Negative Negative Specific [place], POC Comment:>=1.030 Blood, ur, POC Negative Negative pH, ur, POC 5.5 5.0 - 8.0 Protein, ur, POC Negative Negative Urobilinogen, urine, POC 0.2 0.2 - 1.0 mg/dL Nitrite, ur, POC Negative Negative Leukocytes, ur, POC Negative Negative Lot Number [id number] Urine 09/23/2024 9:30 AM CDT Jacque Cutler NP POINT OF CARE TEST ORDERAB LES Final Result * Urine culture Urine, clean voided (09/23/2024 9:17 AM CDT) Report Final Report: Less than 100,000 colonies/mL (clinically insignificant growth based on current clinical standards) Comment:Testing performed by : [facility], [address] [facility] [place]., [address] Organism (CLINICALLY INSIGNIFICANT GROWTH [facility] Urine, clean voided 09/23/2024 9:17 AM CDT 09/23/2024 3:54 PM CDT Narrative [facility] - 09/25/2024 7:44 AM CDT Testing performed by [facility] Microbiology Laboratory ([phone]) Jacque Cutler NP LAB MICROBIOLOGY - GENERAL ORDERABLES Final Result Performing Organization Address [facility] Co de Phone Number [place] [address] [address] [place] [address] * Throat culture Throat (2024 12:56 PM CDT) Report Final Report: No growth of pathogens. Comment:Testing performed by : [facility], [address] [place]., [address] Throat 2024 12:5 6 PM CDT 09/16/2024 12:31 AM CDT Narrative [facility] 09/16/2024 7:33 PM CDT Testing performed by [facility] Microbiology Laboratory ([phone]). Swathi Sheehan NP LAB MICROBIOLOGY - GENERAL ORD ERABLES Final Result Performing Organization Address [facility] Co de Phone Number [facility] [address] [address] [facility] [place] [address] * POCT mononucleosis screen (2024 12:54 PM CDT) Heterophile, POC neg Blood spot 2024 12:5 4 PM CDT Swathi Sheehan NP POINT OF CARE TEST ORDERABLES Final Result * POCT rapid strep A (2024 12:54 PM CDT) Rapid Strep A, POC Negative Negative Swab 2024 12:5 4 PM CDT us Swathi Sheehan NP POINT OF CARE TEST ORDERABLES Final Result * Throat culture Throat (08/26/2024 1:48 PM CDT) Report Final Report: No growth of pathogens. Comment:Testing performed by : [facility], [address] [place]., [address] Throat 08/26/2024 1:48 PM CDT 08/26/2024 6:38 PM CDT Narrative [facility] - 08/27/2024 2:03 PM CDT Testing performed by [facility] Microbiology Laboratory ([phone]). us Swathi Sheehan NP LAB MICROBIOLOGY - GENERAL ORD ERABLES Final Result Performing Organization Address City/State/[facility] Co de Phone Number [place] [address] [address] [place] [address] * POCT rapid strep A (08/26/2024 8:24 AM CDT) Rapid Strep A, POC Negative Negative Swab 08/26/2024 8:24 AM CDT Swathi Sheehan NP POINT OF CARE TEST ORDERABLES Final Result from Last 3 Months Insurance CHOICE PRF PPO [place] Care Teams Spar Finisher Relationship Specialty Start Date End Date Cuco Rocha MD [address] [place] [address] PCP - General Internal Medicine 09/15/24
== END 2024-10-11 11:33 | disposition home or self-care (01) ==
LOC: CHSIMG 11:34
PROVIDERS: PCP Internal Medicine; Visit Provider Internal Medicine
DX: S99.912A Unspecified injury of left ankle, initial encounter (principal)
CPT/HCPCS: 73610; 73630

== ENCOUNTER 2024-11-29 12:51 | Outpatient (CLI) | payer BC, SELFPAY ==
--- OUTSIDE RECORDS SUMMARY | 2024-11-29 12:55 | XMS_ITS | Referral Summary ---
Author Organization [facility] HealthCare Care Team Providers Care Manager Category Name Role Phone Cuco Rocha MD Primary Care Provider Encounters Date Type Department Care Team Description 09/24/2024 Results Follow-Up [facility] at [address] [place] [address] Jacque Cutler, PROPAGATOR Urine culture Urine, clean voided 09/23/2024 9:17 AM CDT - 09/23/2024 11:59 PM CDT Hospital Encounter [address] [address] UTI symptoms Discharge Disposition: Discharge to home or self care 09/23/2024 9:30 AM CDT Office Visit [facility] at [place] [address] [place] [address] Jacque Cutler, MARY UTI symptoms (Primary Dx); Acute midline low back pain without sciatica; Urinary frequency 09/16/2024 Results Follow-Up [facility] at [address] [address] Swathi Sheehan, PROPAGATOR Throat culture Throat 2024 12:56 PM CDT - 2024 11:59 PM CDT Hospital Encounter [address] [address] Pharyngitis, unspecified etiology Discharge Disposition: Discharge to home or self care 2024 12:30 PM CDT Office Visit [facility] at [address] [address] Swathi Sheehan, PROPAGATOR Pharyngitis, unspecified etiology (Primary Dx) from Last 3 Months Allergies No known [...] for muscle spasms 30 tablet 09/24/19 25 Active Active Problems No known active problems [...] 12:5 4 PM CDT Pharyngitis, unspecified etiology from Last 3 Months Results * POCT [...] Negative Ketones, ur, POC Negative Negative Specific [place], POC Comment:>=1.030 Blood, ur, POC Negative Negative pH, ur, POC 5.5 5.0 - 8.0 Protein, ur, POC Negative Negative Urobilinogen, urine, POC 0.2 0.2 - 1.0 mg/dL Nitrite, ur, POC Negative Negative Leukocytes, ur, POC Negative Negative Lot Number [id number] Urine 09/23/2024 9:30 AM CDT Jacque Cutler NP POINT OF CARE TEST ORDERAB LES Final Result * Urine culture Urine, clean voided (09/23/2024 9:17 AM CDT) Report Final Report: Less than 100,000 colonies/mL (clinically insignificant growth based on current clinical standards) Comment:Testing performed by : [facility], [address] [place] [address]., [id number] Organism (CLINICALLY INSIGNIFICANT GR[facility]TH [facility] Urine, clean voided 09/23/2024 9:17 AM CDT 09/23/2024 3:54 PM CDT Narrative [facility] - 09/25/2024 7:44 AM CDT Testing performed by [facility] Microbiology Laboratory ([phone]) Jacque Cutler NP LAB MICROBIOLOGY - GENERAL ORDERABLES Final Result [facility] [address] [address] [place] [address] * Throat culture Throat (2024 12:56 PM CDT) Report Final Report: No growth of pathogens. Comment:Testing performed by : [facility], [address] [place] [address]., [id number] Throat 2024 12:5 6 PM CDT 09/16/2024 12:31 AM CDT Narrative [facility] - 09/16/2024 7:33 PM CDT Testing performed by [facility] Microbiology Laboratory ([phone]). Swathi Sheehan NP LAB MICROBIOLOGY - GENERAL ORD ERABLES Final Result [facility] [address] [place] [address] * POCT mononucleosis screen (2024 12:54 PM CDT) Heterophile, POC neg Blood spot 2024 12:5 4 PM CDT Swathi Sheehan NP POINT OF CARE TEST ORDERABLES Final Result * POCT rapid strep A (2024 12:54 PM CDT) Rapid Strep A, POC Negative Negative Swab 2024 12:5 4 PM CDT Swathi Sheehan NP POINT OF CARE TEST ORDERABLES Final Result from Last 3 Months Insurance [employer] PPO [place] Care Teams Manager Category Relationship Specialty Start Date End Date Cuco Rocha MD [address] [place], [place] [phone] PCP - General Internal Medicine 09/15/24
--- OUTSIDE RECORDS SUMMARY | 2024-11-29 12:55 | XMS_ITS | Clinical Summary ---
Author Organization [facility] Address [facility] [place] [address] Care Team Providers Care Rotary Furnace Tender Name Role Phone Unknown, Provider Primary Care Provider Unavaila ble Source Comments [facility],non-owned Affiliates and Associated Physician Practices is amultiple site organization consisting of ambulatory clinics and hospital sitesin [place], [place] and [place]. This disclosure is being madepursuant to the Care Everywhere program and may not contain all information available regarding this patient. Last updated 18.[facility] [employer] Allergies No known active allergies Medications * [...] of 3 - 19+ 3-dose series) 2000 HPV VACCINE (1 - 3-dose SCDM series) 2008 COVID-19 VACCINE (1 - 2023-2 5 season) 2024 DEPRESSION SCREENING 05/10/2024 INFLUENZA VACCINE (#1) 2025 ZOSTER VACCINE (1 of 2) 09/16/2031 [...] patient's age to complete this topic Insurance [facility] Address: [facility] [id number] [place] [address] Care Teams Rotary Furnace Tender Relationship Specialty Start Date End Date Unknown, Provider PCP - General 10/28/20
--- OUTSIDE RECORDS SUMMARY | 2024-11-29 12:55 | XMS_ITS | Clinical Summary ---
Author Organization [facility] Care Team Providers Care Lead Front End Developer Name Role Phone Cuco Rocha MD Primary Care Provider [phone] Allergies No known active allergies Medications losartan-hydroCHLOR [...] Department Care Team Description 09/24/2024 Results Follow-Up [facility] at [address] [place] [address] Jacque Cutler, FAMILY SERVICES SPECIALIST Urine culture Urine, clean voided 09/23/2024 9:30 AM CDT Office Visit [facility] at [address] [place] [address] Jacque Cutler, FAMILY SERVICES SPECIALIST UTI symptoms (Primary Dx); Acute midline low back pain without sciatica; Urinary frequency 09/23/2024 9:17 AM CDT - 09/23/2024 11:59 PM CDT Hospital Encounter [address] [address] UTI symptoms Discharge Disposition: Discharge to home or self care 09/16/2024 Results Follow-Up [facility] at [address] [address] Swathi Sheehan NP Throat culture Throat 2024 12:56 PM CDT - 2024 11:59 PM CDT Hospital Encounter [address] [address] Pharyngitis, unspecified etiology Discharge Disposition: Discharge to home or self care 2024 12:30 PM CDT Office Visit [facility] at [address] [address] Swathi Sheehan, MARY Pharyngitis, unspecified etiology (Primary Dx) from Last 3 Months Social History Tobacco [...] Regular Well Visit/Exam 18-64 09/16/1999 Influenza Vaccine (#1) 2025 HPV Vaccines Aged Out No longer [...] POCT urinalysis dipstick (09/23/2024 9:30 AM CDT) Pathologist [facility] [place] Color, Urine, POC Ellen Clarity, ur, POC Cloudy(A) Clear Glucose, ur, POC Negative Negative Bilirubin, ur, POC Negative Negative Ketones, ur, POC Negative Negative Specific [place], POC Comment:>=1.030 Blood, ur, POC Negative Negative pH, ur, POC 5.5 5.0 - 8.0 Protein, ur, POC Negative Negative Urobilinogen, urine, POC 0.2 0.2 - 1.0 mg/dL Nitrite, ur, POC Negative Negative Leukocytes, ur, POC Negative Negative Lot Number [id number] Urine 09/23/2024 9:30 AM CDT Jacque Cutler NP POINT OF CARE TEST ORDERAB LES Final Result * Urine culture Urine, clean voided (09/23/2024 9:17 AM CDT) Pathologist [facility] [place] Report Final Report: Less than 100,000 colonies/mL (clinically insignificant growth based on current clinical standards) Comment:Testing performed by : [facility], [address] [facility] [place]., [address] Organism (CLINICALLY INSIGNIFICANT GROWTH [facility] Urine, clean voided 09/23/2024 9:17 AM CDT 09/23/2024 3:54 PM CDT Narrative CHELLY - 09/25/2024 7:44 AM CDT Testing performed by [facility] Microbiology Laboratory ([phone]) Jacque Cutler NP LAB MICROBIOLOGY - GENERAL ORDERABLES Final Result Performing Organization Address City/[facility]/ZIP Co de Phone Number CHELLY BUTCHER [id number] Department [place] [address] * Throat culture Throat (2024 12:56 PM CDT) Report Final Report: No growth of pathogens. Comment:Testing performed by : [facility], [address] [place], [place]., [address] Throat 2024 12:5 6 PM CDT 09/16/2024 12:31 AM CDT Narrative CERNER - 09/16/2024 7:33 PM CDT Testing performed by [facility] Microbiology Laboratory ([phone]). us Swathi Sheehan NP LAB MICROBIOLOGY - GENERAL ORD ERABLES Final Result Performing Organization Address [facility] Co de Phone Number CHELLY BUTCHER [phone] Department [place] [address] * POCT mononucleosis screen (2024 12:54 PM CDT) Heterophile, POC neg Blood spot 2024 12:5 4 PM CDT us Swathi Sheehan NP POINT OF CARE TEST ORDERABLES Final Result * POCT rapid strep A (2024 12:54 PM CDT) Rapid Strep A, POC Negative Negative Swab 2024 12:5 4 PM CDT us Swathi Sheehan NP POINT OF CARE TEST ORDERABLES Final Result from Last 3 Months Insurance [employer] [place] Care Teams Lead Front End Developer Relationship Specialty Start Date End Date Cuco Rocha MD [address] [place] [address] PCP - General Internal Medicine 09/15/24
--- NOTE | 2024-12-19 12:50 | WPDHOLTEREM ---
Holter/Event Monitor Holter/Event Monitor Date of procedure: 11/29/24 Holter/Event Procedure: Event Monitor Indications: Palpitations Conclusion: 1. 14 days event monitor on 11/29/24. 2. Underlying rhythm is sinus rhythm. HR range 60-167 bpm; average HR 95 bpm. 3. There are rare premature supraventricular complexes, rare supraventricular couplets, and rare supraventricular triplets. No supraventricular tachycardia. 4. There are rare premature ventricular complexes. No ventricular tachycardia. 5. No significant pauses greater than 3 seconds. 6. Patient reports 2 episodes of symptoms of lightheadedness, heart racing, shortness of breath which demonstrate sinus rhythm, HR range 99-142 bpm.
== END 2024-11-29 12:52 | disposition home or self-care (01) ==
LOC: CHSCARD 12:53
PROVIDERS: PCP Internal Medicine; Visit Provider Internal Medicine
DX: R00.2 Palpitations (principal)
CPT/HCPCS: 93246